=== PATIENT | female | born 1945 | race Caucasian/White ===

== ENCOUNTER 2022-12-30 13:30 | Emergency (ER) | payer MEDICARE ==
[2022-12-30 14:06] VITALS: BP 115/65; PULSE 70
[2022-12-30] MEDS: Lidocaine 1% 30 ML SDV INJECT ONE (14:35)
== END 2022-12-30 15:36 | disposition home or self-care (01) ==
LOC: VM.ED 13:30
DX: S02.31XA Fracture of orbital floor, right side, initial encounter for closed fracture (principal); S01.01XA Laceration without foreign body of scalp, initial encounter; I10 Essential (primary) hypertension; W19.XXXA Unspecified fall, initial encounter
CPT/HCPCS: 12002; 70450; 99283; J3490